=== PATIENT | male | born 1995 | race African-American/Black ===

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

== ENCOUNTER 2019-05-01 09:06 | Emergency (ER) | payer SELFPAY ==
[~2019-05-01] VITALS: Ht 172.7 cm; Wt 59.0 kg
[~2019-05-01 09:06] MED LIST: ACET325T16 PO; IBUP-1007 PO; TRAM50TA PO
[2019-05-01 10:14] VITALS: BP 133/68
--- NOTE | 2019-05-01 10:55 | PHYS DOC ---
Past Medical History Past Medical History: Other Additional Past Medical Histor: brain bleed in 2014 Past Surgical History: No Surgical History Alcohol Use: None Drug Use: Marijuana Adult General Chief Complaint Chief Complaint: FLU SYMPTOM HPI HPI Patient is a 23 year old AA male who presents to the emergency department with complaints of a cough, tactile fever, nasal congestion, sinus pressure, and body aches for the last week. Patient denies any abdominal pain, nausea, vomiting, diarrhea, shortness of breath, or wheezing. Patient states he's been taking ov or-nhd-zyxksko cold medications with little relief of his symptoms. He rates his discomfort as 7 out of 10 on the pain scale he denies any alleviating factors. All other ROS is neg unless otherwise noted in HPI. Review of Systems Review of Systems See Above Allergies Allergies Allergies Coded Allergies Type Severity Reaction Last Updated Verified No Known Drug Allergies 06/09/16 No Physical Exam Physical Exam See Above Constitutional: Well developed, well nourished, no acute distress, non-toxic appearance. [] HENT: Normocephalic, atraumatic, bilateral external ears normal, bilateral TMs normal, posterior pharynx normal, oropharynx moist, no oral exudates, nose congested with erythema of bilateral turbinates minimal swelling Eyes: PERRLA, EOMI, conjunctiva normal, no discharge. [] Neck: Normal range of motion, no tenderness, supple, no stridor. [] Cardiovascular:Heart rate regular rhythm, no murmur [] Lungs & Thorax: Bilateral breath sounds clear to auscultation [] Skin: Warm, dry, no erythema, no rash. [] Back: No tenderness Extremities: No cyanosis, ROM intact, no edema. [] Neurologic: Alert and oriented X 3, no focal deficits noted. [] Psychologic: Affect normal, judgement normal, mood normal. [] Current Patient Data Vital Signs Vital Signs Date Time Temp Pulse Resp B/P (MAP) Pulse Ox O2 Delivery O2 Flow Rate FiO2 05/01/19 10:14 99.6 93 16 133/68 (89) 97 Room Air 99.6 EKG EKG [] Radiology/Procedures Radiology/Procedures [] Course & Med Decision Making Course & Med Decision Making Pertinent Labs and Imaging studies reviewed. (See chart for details) dx: medical screening exam A medical screening exam was performed, patient was found to have no emergent medical condition. The plan of care would've included a prescription for Tessalon Perles and URI instructions. However, the patient eloped after talking with registration. [] [] Dragon Disclaimer Dragon Disclaimer This electronic medical record was generated, in whole or in part, using a voice recognition dictation system. Departure Departure Impression: Primary Impression: Encounter for medical screening examination Disposition: HOME, SELF-CARE (pt eloped after speaking with registrar) Condition: STABLE Referrals: NO PCP (PCP) LIDA HOLDER COSMETIC CONSULTANT May 01, 2019 10:55
== END 2019-05-01 10:53 | disposition home or self-care (01) ==
LOC: ER 09:06
DX: R05 Cough (principal); R50.9 Fever, unspecified; R09.81 Nasal congestion; M79.10 Myalgia, unspecified site
CPT/HCPCS: 99283

== ENCOUNTER 2020-09-03 20:15 | Emergency (ER) | payer OTHER ==
[~2020-09-03] VITALS: Ht 170.2 cm; Wt 59.0 kg
[~2020-09-03 20:15] MED LIST changes: +ACET-2061 PO; -ACET325T16 PO
[2020-09-03 20:30] VITALS: BP 148/103
[2020-09-03 21:35] LABS: BILIRUBIN,URINE SMALL (NEG); CLARITY,URINE CLEAR; NITRITE,URINE NEGATIVE (NEG); PROTEIN,URINE NEGATIVE (NEG-TRACE)
--- NOTE | 2020-09-03 21:39 | PHYS DOC ---
Past Medical History Past Medical History: No Pertinent History, Other Additional Past Medical Histor: brain bleed in 2014 (KRISTINA PABON SLOT MACHINE DEPARTMENT FLOORPERSON) Past Surgical History: Other Additional Past Surgical Histo: BRAIN BLEED (KRISTINA PABON SL[employer] MACHINE DEPARTMENT FLOORPERSON) Smoking Status: Never Smoker Alcohol Use: None Drug Use: Marijuana (KRISTINA PABON SL[employer] MACHINE DEPARTMENT FLOORPERSON) General Adult EDM: Chief Complaint: SEXUALLY TRANSMITTED DISEASE HPI: HPI: Patient is a 24 year old male who presents with burning with urination x1 day. He does have concerns for sexually transmitted diseases and would like to be checked and treated. Denies penile discharge, nausea, vomiting, diarrhea, fever, back pain, abdominal pain, dizziness, headache, chest pain, shortness of air. (KRISTINA PABON [employer] MACH[employer] DEPARTMENT FLOORPERSON) Review of Systems: Review of Systems: Constitutional: Denies fever or chills. [] Eyes: Denies change in visual acuity. [] HENT: Denies nasal congestion or sore throat. [] Respiratory: Denies cough or shortness of breath. [] Cardiovascular: Denies chest pain or edema. [] GI: Denies abdominal pain, nausea, vomiting, bloody stools or diarrhea. [] : Denies dysuria. + Burning with urination [] Musculoskeletal: Denies back pain or joint pain. [] Integument: Denies rash. [] Neurologic: Denies headache, focal weakness or sensory changes. [] Endocrine: Denies polyuria or polydipsia. [] Lymphatic: Denies swollen glands. [] Psychiatric: Denies depression or anxiety. [] (KRISTINA PABON [employer] MACHINE DEPARTMENT FLOORPERSON) Heart Score: C/O Chest Pain: No Risk Factors: Risk Factors: DM, Current or recent (<one month) smoker, HTN, HLP, family history of CAD, obesity. Risk Scores: Score 0 - 3: 2.5% MACE over next 6 weeks - Discharge Home Score 4 - 6: 20.3% MACE over next 6 weeks - Admit for Clinical Observation Score 7 - 10: 72.7% MACE over next 6 weeks - Early Invasive Strategies (KRISTINA PABON [employer] MACH[employer] DEPARTMENT FLOORPERSON) Allergies: Allergies: Allergies Coded Allergies Type Severity Reaction Last Updated Verified No Known Drug Allergies 06/09/16 No (KRISTINA PABON [employer] MACH[employer] DEPARTMENT FLOORPERSON) Physical Exam: PE: Constitutional: Well developed, well nourished, no acute distress, non-toxic appearance. [] HENT: Normocephalic, atraumatic, bilateral external ears normal, oropharynx moist, no oral exudates, nose normal. [] Eyes: PERRLA, EOMI, conjunctiva normal, no discharge. [] Neck: Normal range of motion, no tenderness, supple, no stridor. [] Cardiovascular:Heart rate regular rhythm, no murmur [] Lungs & Thorax: Bilateral breath sounds clear to auscultation [] Abdomen: Bowel sounds normal, soft, no tenderness, no masses, no pulsatile masses. [] Skin: Warm, dry, no erythema, no rash. [] Back: No tenderness, no CVA tenderness. [] Extremities: No tenderness, no cyanosis, no clubbing, ROM intact, no edema. [] Neurologic: Alert and oriented X 3, normal motor function, normal sensory function, no focal deficits noted. [] Psychologic: Affect normal, judgement normal, mood normal. [ Normal physical exam] (KRISTINA PABON APRN) Current Patient Data: Vital Signs: Vital Signs Date Time Temp Pulse Resp B/P (MAP) Pulse Ox O2 Delivery O2 Flow Rate FiO2 09/03/20 20:30 97.9 88 16 148/103 (118) 99 Room Air 97.9 (KRISTINA PABON APRN) EKG: EKG: [] (KRISTINA PABON APRN) Radiology/Procedures: Radiology/Procedures: [] (KRISTINA PABON APRN) Course & Med Decision Making: Course & Med Decision Making Pertinent Labs and Imaging studies reviewed. (See chart for details) See HPI. Alert and oriented x4. Denies any pain. States pain is only with urination. Denies any blood in his urine. Speaks in full clear sentences. Ambulatory with a steady gait. Skin pink warm and dry. Vital signs within normal limits. Abdomen soft and nontender. Denies any testicular pain. Patient is given azithromycin and Rocephin in the ED. [] (KRISTINA PABON APRN) Dragon Disclaimer: Dragon Disclaimer: This electronic medical record was generated, in whole or in part, using a voice recognition dictation system. (KRISTINA PABON APRN) Departure Departure Impression: Primary Impression: Urinary symptom or sign Additional Impression: Concern about sexually transmitted disease in male without diagnosis Disposition: 01 DC HOME SELF CARE/HOMELESS Condition: STABLE Referrals: NO PCP (PCP) Patient Instructions: Sexually Transmitted Disease Additional Instructions: Follow-up with your primary care provider or urologist of your choice if you continue to problems. Do not have sex for 10 days after you have been treated. You will be called in 48 hours if your results come back positive. Tell all other sexual partners you have been treated and they should be treated to. Attending Signature Attending Signature I have reviewed the PA/MAMMOGRAPHY TECHNICIAN's note and plan of care. I was available for consultation as needed during the patient's visit in the emergency department. I agree with the clinical impression, plan, and disposition. (MARGIE XIE DO) KRISTINA PABON APRN Sep 03, 2020 21:39 MARGIE XIE DO Sep 04, 2020 01:35
[2020-09-03 21:42] LABS: COLOR,URINE YELLOW
[2020-09-03 21:44] LABS: BACTERIA,URINE 0 /HPF (0-FEW); RBC,URINE 0 /HPF (0-2); WBC,URINE 0 /HPF (0-4)
[2020-09-03] MEDS: AZITHROMYCIN 250 MG TABLET. PO ONE (22:03)
[2020-09-03] MEDS: cefTRIAXone IM 500 MG VIAL. IM ONE (22:03)
== END 2020-09-03 22:10 | disposition home or self-care (01) ==
LOC: ER 20:15
DX: R30.9 Painful micturition, unspecified (principal); F12.90 Cannabis use, unspecified, uncomplicated; Z20.2 Contact with and (suspected) exposure to infections with a predominantly sexual mode of transmission; Z98.890 Other specified postprocedural states
CPT/HCPCS: 81001; 87491; 87591; 96372; 99283; J0696

== ENCOUNTER 2021-04-28 00:22 | Emergency (ER) | payer SELFPAY ==
[2021-04-28] MEDS ORDERED: cefTRIAXone IM 500 MG VIAL. IM ONE (01:43)
== END 2021-04-28 04:00 | disposition left against medical advice (07) ==
LOC: ER 00:22
DX: Z20.2 Contact with and (suspected) exposure to infections with a predominantly sexual mode of transmission (principal); Z53.21 Procedure and treatment not carried out due to patient leaving prior to being seen by health care provider